=== PATIENT | female | born 1980 ===

== ENCOUNTER 2016-10-27 09:11 | Emergency (ER) | payer BC ==
[2016-10-27 10:45] VITALS: BP 153/93
--- NOTE | 2016-10-27 11:06 | UC ---
Rectal Pain HPI - HPI Summary HPI Summary: has had a hemorrhoid for 3 weeks is concerned that it is not going away - History Of Current Complaint Chief Complaint: UCGeneralIllness Stated Complaint: RECTAL PAIN Time Seen by Provider: 10/27/16 10:52 Hx Obtained From: Patient Hx Last Menstrual Period: 10/02/16 ?: No Onset/Duration: Gradual Onset, Lasting Weeks - 3, Still Present Timing: Constant Severity Initially: Moderate Severity Currently: Moderate Pain Intensity: 5 Pain Scale Used: 0-10 Numeric Location Of Pain: Anal Character: Pressure Aggravating Factor(s): Walking, Exertion, Other - bike riding Alleviating Factor(s): Nothing - has been using hemm. cream for 3 weeks tid Associated Signs And Symptoms: Positive: Negative Related History: Hemorrhoids - Allergies/Home Medications Allergies/Adverse Reactions: Allergies Allergy/AdvReac Type Severity Reaction Status Date / Time Ampicillin Allergy Unknown rash/fever Verified 02/20/16 07:05 PMH/Surg Hx/FS Hx/Imm Hx Previously Healthy: No Endocrine History Of: Denies: Diabetes, Thyroid Disease Cardiovascular History Of: Reports: Hypertension - TAKES METOPROLOL QAM Denies: Cardiac Disorders Respiratory History Of: Denies: COPD, Asthma GI/ History Of: Denies: Ulcer Neurological History Of: Reports: Migraine - 2 PER MONTH, TAKES RX PRN Psychological History Of: Reports: Anxiety - Surgical History Surgical History: Yes Surgery Procedure, Year, and Place: WISDOM TOOTH EXTRACTION- 1996- IN OFFICE. [place] Teeth Extraction- 2005- [facility]. Mole Removal-Left breast - 2009- DR [facility]. - 2013- [facility]. tubal 2016 - Family History Known Family History: Positive: Unknown Family History: no cardiovascular issues in family lineage - Social History Occupation: Employed Full-time Lives: With Family Alcohol Use: Occasionally Alcohol Amount: 2-3 BEERS WEEKEND Substance Use Type: None Smoking Status (MU): Former Smoker Type: Cigarettes Amount Used/How Often: 1/2 PPD FOR 5 YRS Length of Time of Smoking/Using Tobacco: 5 YRS Have You Smoked in the Last Year: No When Did the Patient Quit Smoking/Using Tobacco: 2004 - Immunization History Most Recent Influenza Vaccination: season Most Recent Tetanus Shot: 09/21/13 Most Recent Pneumonia Vaccination: none Review of Systems Constitutional: Negative Skin: Negative Eyes: Negative ENT: Negative Respiratory: Negative Cardiovascular: Negative Gastrointestinal: Negative Genitourinary: Negative Motor: Negative Neurovascular: Negative Musculoskeletal: Negative Neurological: Negative Psychological: Negative All Other Systems Reviewed And Are Negative: Yes - Comments Additional Review of Systems Comments: 1- 5mm diameter hemorrhoid no bleed not tense nor filled with clotted blood Physical Exam Triage Information Reviewed: Yes Appearance: Well-Appearing, No Pain Distress, Well-Nourished Vital Signs: Initial Vital Signs Temp 98.9 F 10/27/16 10:38 Pulse 73 10/27/16 10:38 Resp 20 10/27/16 10:38 BP 153/93 10/27/16 10:38 Pulse Ox 100 10/27/16 10:38 Vital Signs Reviewed: Yes Eye Exam: Normal Eyes: Positive: Conjunctiva Clear ENT Exam: Normal ENT: Positive: Normal ENT inspection, Hearing grossly normal. Negative: Nasal congestion, Nasal drainage, Trismus, Muffled/hoarse voice Neck exam: Normal Neck: Positive: Supple, Nontender Respiratory Exam: Normal Respiratory: Positive: Chest non-tender, Lungs clear, Normal breath sounds, No respiratory distress, No accessory muscle use Cardiovascular Exam: Normal Cardiovascular: Positive: RRR, No Murmur, Pulses Normal, Brisk Capillary Refill Musculoskeletal Exam: Normal Musculoskeletal: Positive: Strength Intact, ROM Intact, No Edema Neurological Exam: Normal Neurological: Positive: Alert, Muscle Tone Normal Psychological Exam: Normal Skin Exam: Normal - hemm. as described Rectal Pain Course/Dx - Course Course Of Treatment: stop riding bike until resolved, hydrocort cream/ suppository, follow with surgeon if not resolving-incease fiber in diet - Differential Dx/Diagnosis Differential Diagnosis/HQI/PQRI: Hemorrhoid(s), Prolapsed Rectum, Rectal Fissure , Rectal Polyps, STD Provider Diagnoses: Hemorroid, hypertension Discharge - Discharge Plan Condition: Stable Disposition: HOME Patient Education Materials: Laxative, Bulk-forming (By mouth), Hydrocortisone (Into the rectum), Hemorrhoids (ED) Referrals: Shadi Mishra MD [Medical Doctor] - 2 Weeks Karen Tatum MD [Primary Care Provider] -
== END 2016-10-27 11:18 | disposition home or self-care (01) ==
LOC: UCEAST 09:11
DX: K64.9 Unspecified hemorrhoids (principal); I10 Essential (primary) hypertension; Z87.891 Personal history of nicotine dependence
CPT/HCPCS: 99211; G0463

== ENCOUNTER 2017-04-27 07:06 | Emergency (ER) | payer BC ==
[2017-04-27 07:21] VITALS: BP 130/91
--- NOTE | 2017-04-27 07:37 | UC ---
Abdominal Pain Female HPI - HPI Summary HPI Summary: The patient comes in today for: 1. Abdominal pain: Onset: Yesterday Palliative/provocative: Nothing makes the pain better or worse. Quality: Crampy Region: Lower right and left abdomen Severity: 5/10 Time: Constant. Associated symptoms: Fevers: None. Vomiting/nausea: Nausea yesterday, but not today. Diarrhea: None. Others ill: NOne. Last BM: last night--normal. Previous intestinal problems: NOne. Previous treatment: Pepcid taken last night, and some ibuprofen. * - History of Current Complaint Chief Complaint: UCAbdominalPain Stated Complaint: ABD PAIN Time Seen by Provider: 04/27/17 07:29 Hx Obtained From: Patient Hx Last Menstrual Period: 04/03/17 Allergies/Adverse Reactions: Allergies Allergy/AdvReac Type Severity Reaction Status Date / Time Ampicillin Allergy Unknown rash/fever Verified 04/27/17 07:14 Home Medications: Home Medications Multiple Vitamins W/ Minerals [Multivitamin Adults] 1 tab PO DAILY 04/27/17 [ History Confirmed 04/27/17] Kohler-3 Fatty Acids [Fish Oil] 1,000 mg PO DAILY 04/27/17 [History Confirmed 01/09] PMH/Surg Hx/FS Hx/Imm Hx Previously Healthy: No - Antiphospholipid syndrome. Neurological History: Migraine - Surgical History Surgical History: Yes Surgery Procedure, Year, and Place: WISDOM TOOTH EXTRACTION- 1996- IN OFFICE. [place] Teeth Extraction- 2005- [facility]. Mole Removal-Left breast - 2009- DR [facility]. - 2013- [facility] [place]. tubal 2015 - Family History Known Family History: Positive: Hypertension Negative: Diabetes Family History: no cardiovascular issues in family lineage - Social History Occupation: Employed Full-time Alcohol Use: Occasionally Alcohol Amount: 2-3 BE[employer] WEEKEND Substance Use Type: None Smoking Status (MU): Former Smoker Type: Cigarettes Amount Used/How Often: 1/2 PPD FOR 5 YRS Length of Time of Smoking/Using Tobacco: 5 YRS Have You Smoked in the Last Year: No When Did the Patient Quit Smoking/Using Tobacco: 2003 - Immunization History Most Recent Influenza Vaccination: season Most Recent Tetanus Shot: 09/21/13 Most Recent Pneumonia Vaccination: none Review of Systems Constitutional: Negative Skin: Negative Eyes: Negative ENT: Negative Respiratory: Negative Cardiovascular: Negative Gastrointestinal: Abdominal Pain Genitourinary: Negative All Other Systems Reviewed And Are Negative: Yes Physical Exam Triage Information Reviewed: Yes Appearance: Well-Appearing, No Pain Distress, Well-Nourished Vital Signs: Initial Vital Signs Temp 98.5 F 04/27/17 07:16 Pulse 70 04/27/17 07:16 Resp 16 04/27/17 07:16 BP 130/91 04/27/17 07:16 Pulse Ox 100 04/27/17 07:16 Vital Signs Reviewed: Yes Eyes: Positive: Conjunctiva Clear. Negative: Discharge ENT: Positive: Hearing grossly normal, Other: - Ears: Right TM: cerumen impaction--but no canal erythema or edema Left TM: rao and translucent.. Negative: Pharyngeal erythema, Nasal congestion, Nasal drainage, Tonsillar swelling, Tonsillar exudate Dental: Negative: Gross Decay/Caries @, Dental Fracture @ Neck: Positive: Supple, Nontender, No Lymphadenopathy. Negative: Nuchal Rigidity Respiratory: Positive: Lungs clear, No respiratory distress, No accessory muscle use. Negative: Rhonchi, Wheezing Cardiovascular: Positive: RRR, No Murmur Abdomen Description: Positive: No Organomegaly, Soft. Negative: Nontender - She has tenderness over McBurney's point. There is percussion tenderness. There is no rebound, Distended, Guarding Musculoskeletal: Positive: Strength Intact, ROM Intact, No Edema Neurological: Positive: Alert, Muscle Tone Normal Psychological: Positive: Age Appropriate Behavior, Consolable Skin: Negative: rashes, breakdown Abd Pain Female Course/Dx - Course Course Of Treatment: Patient was told that think she should go to the ER for possible appendicitis. She agreed to go via private car. - Differential Dx/Diagnosis Provider Diagnoses: Abdominal pain (rule out appendicitis) Discharge - Discharge Plan Condition: Stable Disposition: HOME Additional Instructions: Patient is going directly to the [facility] [place] ER for abdominal pain and rule out appendicitis via private car.
== END 2017-04-27 07:46 | disposition home or self-care (01) ==
LOC: UCEAST 07:06
DX: R10.32 Left lower quadrant pain (principal); R10.31 Right lower quadrant pain; Z87.891 Personal history of nicotine dependence
CPT/HCPCS: 81003; 99212; G0463

== ENCOUNTER 2017-04-27 08:05 | Emergency (ER) | payer BC ==
[2017-04-27] MEDS: NS 0.9% 1000 ML* 2,000 ML IV ONE (08:29)
[2017-04-27 08:53] LABS: Hematocrit 39 % (35-47); Hemoglobin 13.2 g/dl (12.0-16.0); Mean Corpuscular HGB Conc 33 g/dl (31-36); Mean Corpuscular Hemoglobin 29 pg (27-31); Mean Corpuscular Volume 86 fL (80-97); Mean Platelet Volume 8 um3 (7.4-10.4); Red Blood Count 4.58 10^6/ul (4.0-5.4); Red Cell Distribution Width 13 % (10.5-15); White Blood Count 8.7 10^3/ul (3.5-10.8)
[2017-04-27 09:06] LABS: ALT 18 U/L (7-52); AST 20 U/L (13-39); Albumin 4.4 g/dL (3.2-5.2); Alkaline Phosphatase 45 U/L (34-104); Anion Gap 8 mmol/L (2-11); BUN/Creatinine Ratio 16.3 (8-20); Blood Urea Nitrogen 14 mg/dL (6-24); CO2 Carbon Dioxide 23 mmol/L (22-32); Calcium 9.4 mg/dL (8.6-10.3); Chloride 105 mmol/L (101-111); EGFR African American 95.5 (>60); EGFR Non-African American 74.2 (>60); Glucose 97 mg/dL (70-100); Lipase 16 U/L (11.0-82.0); Potassium 4.2 mmol/L (3.5-5.0); Sodium 136 mmol/L (133-145); Total Protein 7.4 g/dL (6.4-8.9)
[2017-04-27] MEDS ORDERED: Iohexol 300* (CONTRAST) 10 ML SDV IV ONE (09:20)
[2017-04-27 09:56] LABS: Urine Bilirubin Negative (Negative); Urine Glucose Negative (Negative); Urine Nitrite Negative (Negative)
--- NOTE | 2017-04-27 10:25 | RAD ---
HISTORY: Lower abdominal pain, right lower quadrant pain COMPARISONS: None relevant TECHNIQUE: Multiple transverse and longitudinal ultrasound images were obtained of the pelvis using grayscale, color Doppler, and spectral Doppler imaging using the endovaginal transducer. FINDINGS: UTERUS: The uterus measures 3.7 x 4.6 x 5.4 cm. There is a focal hypoechoic area of the uterine body measuring 0.7 x 0.5 x 0.7 cm in size within the myometrium. ENDOMETRIUM: The endometrial stripe is smooth. The endometrium measures 1.1 cm in thickness. CUL-DE-SAC: There is no free fluid within the cul-de-sac. RIGHT OVARY: The right ovary measures 2.7 x 2.1 x 2.2 cm. LEFT OVARY: The left ovary measures 4.1 x 2.7 x 3.9 cm. Normal arterial and venous waveforms are identifiable within the ovary on spectral Doppler imaging. There is a heterogeneously hypoechoic cystic lesion measuring 2.2 x 1.3 x 2. Adjacent to the left ovary, there is heterogenous hypoechoic material. There is a small amount of simple free fluid within the pelvis. BLADDER: The bladder is not well visualized. IMPRESSION: 1. COMPLICATED CYSTIC LESION OF THE LEFT OVARY MEASURING 2.2 CM IN SIZE. ADDITIONALLY, THERE IS COMPLEX AND SIMPLE FLUID ADJACENT TO THE LEFT ADNEXA WHICH MAY REFLECT SOME DEGREE OF HEMORRHAGIC FLUID, POSSIBLY FROM A RUPTURED HEMORRHAGIC OVARIAN CYST, THOUGH THE IMAGING APPEARANCE IS INDETERMINATE. 2. RECOMMEND CONTINUED SHORT-TERM INTERVAL FOLLOW-UP WITH FOLLOW-UP ULTRASONOGRAPHY IN 6 WEEKS-12 WEEKS. 3. INCIDENTAL NOTED IS A 0.7 CM HYPOECHOIC AREA OF THE UTERUS, LIKELY A SMALL FIBROID..
--- NOTE | 2017-04-27 12:02 | RAD ---
INDICATION: Left lower quadrant pain. Complex left adnexal cyst on concurrent ultrasound. COMPARISON: Transvaginal sonogram April 27, 2017 TECHNIQUE: Axial source images were obtained from the hemidiaphragms to the symphysis pubis following administration of oral and intravenous contrast. 103 mL Omnipaque 300 was utilized. Coronal and sagittal reconstructed images were acquired. Lung bases: The lung bases are clear. Liver: The liver is normal in size. There are no masses. There is no ductal dilatation. Gallbladder: There are no calcified gallstones. There is no evidence of wall thickening or pericholecystic fluid. Spleen: The spleen is normal in size. There are no masses. Pancreas: There is no focal pancreatic mass or ductal dilatation. Adrenal glands: There is no evidence of adrenal mass. Kidneys: The kidneys are normal in size and position. There are prompt nephrograms and there is prompt excretion bilaterally. There are no renal parenchymal masses. There is no evidence of nephrolithiasis. Adenopathy: There is no evidence of adenopathy by size criteria. Fluid collections: There is moderate free fluid in both paracolic gutters right groin left. The free fluid appears complex. Vessels:There are no significant atherosclerotic changes involving the aorta. There is no focal aneurysm. The iliac vessels are normal in caliber. The IVC appears normal. GI tract: There are no acute CT bowel findings. There is no obstruction. The stomach and small bowel appear normal. The lower GI tract is normal. The cecum, ileocecal valve, and terminal ileum appear normal. There is limited evaluation of the appendix which is opacified and appears normal in caliber. There is fluid adjacent to the appendix likely related to the left adnexal process. Pelvic organs: There is a complex cystic mass in the left adnexa as described on the ultrasound. This is likely a involuting and/or hemorrhagic cyst. Measurements of 3.6 x 3.1 approximately 4.5 cm are obtained. Bladder: There are no bladder masses. Abdominal and pelvic soft tissues: The extraperitoneal abdominal and pelvic soft tissues appear normal.. Osseous structures: There are no acute osseous findings. Other: None IMPRESSION: COMPLEX AND PRESUMED HEMORRHAGIC LEFT OVARIAN CYST WITH MILDLY COMPLEX FREE FLUID, LIKELY HEMORRHAGIC FLUID.. THE AMOUNT OF FLUID IS MORE THAN IS TYPICAL. SUGGEST SURGICAL AND/OR GYNECOLOGIC REFERRAL INDICATED. FROM AN IMAGING STANDPOINT SUGGEST SHORT-TERM FOLLOW-UP ULTRASONOGRAPHY.
[2017-04-27 14:45] LABS: Hematocrit 36 % (35-47); Hemoglobin 12.1 g/dl (12.0-16.0); Mean Corpuscular HGB Conc 34 g/dl (31-36); Mean Corpuscular Hemoglobin 29 pg (27-31); Mean Corpuscular Volume 87 fL (80-97); Mean Platelet Volume 8 um3 (7.4-10.4); Red Cell Distribution Width 13 % (10.5-15); White Blood Count 8.5 10^3/ul (3.5-10.8)
--- NOTE | 2017-04-27 15:23 | ED ---
Arthur Green Thomas, scribed for Terrance Rooney MD on 04/27/17 at 0814 . Abdominal Pain/Female - HPI Summary HPI Summary: The pt is a 37 y/o F referred to the ED form [facility] c/o sudden onset lower abd pain that began last night at 18:00. She rates the pain 5/10, and the pain has a cramping quality. The pain is worsened with palpation and is mildly worsened with walking. The pain is not worsened with taking a BM or taking food. She additionally c/o nausea (yesterday but none in the ED), lower back pain (when she woke up) and dysuria (mild). She denies diarrhea, bloody stool, vaginal discharge, hard or loose stools, fevers, and chills. Her urine was negative for UTI at [facility]. Her last BM was 20:00 yesterday, and this did not worsen her pain. She denies that this pain is similar to her previous episodes of menstrual cramping. She first presented to [facility] when she woke up at 4 AM with concerning abd pain. PMHx: HTN. PSHx: , tubal ligation. LNMP April 01. - History of Current Complaint Chief Complaint: EDAbdPain Stated Complaint: ABD PAIN Hx Obtained From: Patient Hx Last Menstrual Period: 04/03/17 Onset/Duration: Sudden Onset, Still Present, Worse Since - this AM Timing: Constant Severity Currently: Moderate Pain Intensity: 5 Pain Scale Used: 0-10 Numeric Location: Other - lower abd Radiates: Yes Radiates to: Back - lower Character: Cramping Aggravating Factor(s): Movement - midly, Other: - NEG: taking a BM, palpation, food Alleviating Factor(s): Nothing Associated Signs and Symptoms: Positive: Back Pain, Nausea - yesterday but not in the ED, Other: - POS: dysuria; NEG: bloody stool, hard or loose stools, chills. Negative: Fever, Vaginal Discharge, Diarrhea Allergies/Adverse Reactions: Allergies Allergy/AdvReac Type Severity Reaction Status Date / Time Ampicillin Allergy Unknown rash/fever Verified 04/27/17 08:20 PMH/Surg Hx/FS Hx/Imm Hx Previously Healthy: No Endocrine/Hematology History: Reports: Hx Anemia - HX OF A TEENAGER Denies: Hx Diabetes, Hx Thyroid Disease Cardiovascular History: Reports: Hx Hypertension Respiratory History: Denies: Hx Asthma, Hx Chronic Obstructive Pulmonary Disease (COPD) GI History: Reports: Hx Gastroesophageal Reflux Disease - DX WITH SILENT REFLUX 1 YR AGO, SEEMS OK NOW Denies: Hx Ulcer Musculoskeletal History: Reports: Hx Arthritis - DX WITH RA 8 YRS AGO, ?? PT DOESN'T THINK SHE HAS IT Sensory History: Reports: Hx Contacts or Glasses - BOTH, WILL WEAR GLASSES DOS Denies: Hx Hearing Aid Opthamlomology History: Reports: Hx Contacts or Glasses - BOTH, WILL WEAR GLASSES DOS Neurological History: Reports: Hx Migraine - 2 PER MONTH, TAKES RX PRN Psychiatric History: Reports: Hx Anxiety - Surgical History Surgery Procedure, Year, and Place: WISDOM TOOTH EXTRACTION- 1996- [facility] DR. [facility]ICE. [place] Teeth Extraction- 2005- [facility]. Mole Removal-Left breast - 2009- DR [facility]. - [place]- [facility] [place] [facility] [place] Hx Anesthesia Reactions: No Infectious Disease History: Denies: Hx Clostridium Difficile, Hx Hepatitis, Hx Human Immunodeficiency Virus (HIV), Hx of Known/Suspected MRSA, Hx Shingles, Hx Tuberculosis, Hx Known/ Suspected VRE, Hx Known/Suspected VRSA, History Other Infectious Disease, Traveled Outside the [place] in Last 30 Days - Family History Known Family History: Positive: Hypertension Negative: Diabetes Family History: no cardiovascular issues in family lineage - Social History Alcohol Use: Occasionally Alcohol Amount: 2-3 BEERS WEEKEND Substance Use Type: Reports: None Smoking Status (MU): Former Smoker Type: Cigarettes Amount Used/How Often: 1/2 PPD FOR 5 YRS Length of Time of Smoking/Using Tobacco: 5 YRS Have You Smoked in the Last Year: No Review of Systems Constitutional: Negative Negative: Fever, Chills Eyes: Negative ENT: Negative Cardiovascular: Negative Respiratory: Negative Positive: Abdominal Pain - lower, cramping quality, Nausea - yesterday, not in ED, Other - NEG: bloody, hard, or loose stools. Negative: Diarrhea Positive: dysuria - mild. Negative: discharge Positive: Other - POS: lower back pain, mild Skin: Negative Neurological: Negative Psychological: Normal All Other Systems Reviewed And Are Negative: Yes Physical Exam - Summary Physical Exam Summary: Gen: well-appearing, no acute distress Skin: warm, color, dry Head: normal Eyes: EOMI, JENS ENT: normal Neck: supple, nontender Resp: CTA, breath sounds present Cardio: RRR Abd: soft, mild TTP LLQ and RLQ (more severe RLQ). Positive heel strike. Negative Obturator sign Bowel: positive bowel sounds Musc: normal, strength/ROM intact Neuro: normal, sensory/motor intact, A&O x3 Psych: affect/mood appropriate Triage Information Reviewed: Yes Vital Signs On Initial Exam: Initial Vitals Temp Pulse Resp BP Pulse Ox 98.1 F 80 18 138/96 100 04/27/17 08:06 04/27/17 08:06 04/27/17 08:06 04/27/17 08:06 04/27/17 08:06 Vital Signs Reviewed: Yes Diagnostics - Vital Signs Vital Signs Temp Pulse Resp BP Pulse Ox 04/27/17 08:06 98.1 F 80 18 138/96 100 - Laboratory Lab Results: Lab Results 04/27/17 04/27/17 04/27/17 Range/Units 08:30 08:30 08:30 WBC 8.7 (3.5-10.8) 10^3/ul RBC 4.58 (4.0-5.4) 10^6/ul Hgb 13.2 (12.0-16.0) g/dl Hct 39 (35-47) % MCV 86 (80-97) fL MCH 29 (27-31) pg MCHC 33 (31-36) g/dl RDW 13 (10.5-15) % Plt Count 227 (150-450) 10^3/ul MPV 8 (7.4-10.4) um3 Neut % (Auto) 73.1 (38-83) % Lymph % (Auto) 19.8 L (25-47) % [place] % (Auto) 6.2 (1-9) % Eos % (Auto) 0.6 (0-6) % Baso % (Auto) 0.3 (0-2) % Absolute Neuts (auto) 6.4 (1.5-7.7) 10^3/ul Absolute Lymphs (auto) 1.7 (1.0-4.8) 10^3/ul Absolute Monos (auto) 0.5 (0-0.8) 10^3/ul Absolute Eos (auto) 0.1 (0-0.6) 10^3/ul Absolute Basos (auto) 0 (0-0.2) 10^3/ul Absolute Nucleated RBC 0 10^3/ul Nucleated RBC % 0 Sodium 136 (133-145) mmol/L Potassium 4.2 (3.5-5.0) mmol/L Chloride 105 (101-111) mmol/L Carbon Dioxide 23 (22-32) mmol/L Anion Gap 8 (2-11) mmol/L BUN 14 (6-24) mg/dL Creatinine 0.86 (0.51-0.95) mg/dL Est GFR ( Amer) 95.5 (>60) Est GFR (Non-Af Amer) 74.2 (>60) BUN/Creatinine Ratio 16.3 (8-20) Glucose 97 (70-100) mg/dL Lactic Acid 0.8 (0.5-2.0) mmol/L Calcium 9.4 (8.6-10.3) mg/dL Total Bilirubin 0.90 (0.2-1.0) mg/dL AST 20 (13-39) U/L ALT 18 (7-52) U/L Alkaline Phosphatase 45 (34-104) U/L C-Reactive Protein 10.40 H (< 5.00) mg/L Total Protein 7.4 (6.4-8.9) g/dL Albumin 4.4 (3.2-5.2) g/dL Globulin 3.0 (2-4) g/dL Albumin/Globulin Ratio 1.5 (1-3) Lipase 16 (11.0-82.0) U/L Beta HCG, Quant < 0.60 mIU/mL Urine Color Urine Appearance Urine pH (5-9) Ur Specific [place] (1.010-1.030) Urine Protein (Negative) Urine Ketones (Negative) Urine Blood (Negative) Urine Nitrate (Negative) Urine Bilirubin (Negative) Urine Urobilinogen (Negative) Ur Leukocyte Esterase (Negative) Urine Glucose (Negative) 04/27/17 04/27/17 Range/Units 09:45 14:32 WBC 8.5 (3.5-10.8) 10^3/ul RBC 4.10 (4.0-5.4) 10^6/ul Hgb 12.1 (12.0-16.0) g/dl Hct 36 (35-47) % MCV 87 (80-97) fL MCH 29 (27-31) pg MCHC 34 (31-36) g/dl RDW 13 (10.5-15) % Plt Count 221 (150-450) 10^3/ul MPV 8 (7.4-10.4) um3 Neut % (Auto) 72.9 (38-83) % Lymph % (Auto) 21.4 L (25-47) % [place] % (Auto) 4.8 (1-9) % Eos % (Auto) 0.3 (0-6) % Baso % (Auto) 0.6 (0-2) % Absolute Neuts (auto) 6.2 (1.5-7.7) 10^3/ul Absolute Lymphs (auto) 1.8 (1.0-4.8) 10^3/ul Absolute Monos (auto) 0.4 (0-0.8) 10^3/ul Absolute Eos (auto) 0 (0-0.6) 10^3/ul Absolute Basos (auto) 0.1 (0-0.2) 10^3/ul Absolute Nucleated RBC 0.01 10^3/ul Nucleated RBC % 0.1 Sodium (133-145) mmol/L Potassium (3.5-5.0) mmol/L Chloride (101-111) mmol/L Carbon Dioxide (22-32) mmol/L Anion Gap (2-11) mmol/L BUN (6-24) mg/dL Creatinine (0.51-0.95) mg/dL Est GFR ( Amer) (>60) Est GFR (Non-Af Amer) (>60) BUN/Creatinine Ratio (8-20) Glucose (70-100) mg/dL Lactic Acid (0.5-2.0) mmol/L Calcium (8.6-10.3) mg/dL Total Bilirubin (0.2-1.0) mg/dL AST (13-39) U/L ALT (7-52) U/L Alkaline Phosphatase (34-104) U/L C-Reactive Protein (< 5.00) mg/L Total Protein (6.4-8.9) g/dL Albumin (3.2-5.2) g/dL Globulin (2-4) g/dL Albumin/Globulin Ratio (1-3) Lipase (11.0-82.0) U/L Beta HCG, Quant mIU/mL Urine Color Colorless Urine Appearance Clear Urine pH 6.0 (5-9) Ur Specific [place] 1.002 L (1.010-1.030) Urine Protein Negative (Negative) Urine Ketones Negative (Negative) Urine Blood Negative (Negative) Urine Nitrate Negative (Negative) Urine Bilirubin Negative (Negative) Urine Urobilinogen Negative (Negative) Ur Leukocyte Esterase Negative (Negative) Urine Glucose Negative (Negative) Result Diagrams: 04/27/17 14:32 04/27/17 08:30 Lab Statement: Any lab studies that have been ordered have been reviewed, and results considered in the medical decision making process. - CT CT Abd/Pel CT Interpretation: Positive (See Comments) - COMPLEX AND PRESUMED HEMORRHAGIC LEFT OVARIAN CYST WITH MILDLY COMPLEX FREE FLUID, LIKELY HEMORRHAGIC FLUID.. THE AMOUNT OF FLUID IS MORE THAN IS TYPICAL. SUGGEST SURGICAL AND/OR GYNECOLOGIC REFERRAL INDICATED. FROM AN IMAGING STANDPOINT SUGGEST SHORT- TERM FOLLOW-UP ULTRASONOGRAPHY. CT Interpretation Completed By: Radiologist - Additional Comments Diagnostic Additional Comments: Transvaginal US. Interpreted by Radiologist. Impression: 1. COMPLICATED CYSTIC LESION OF THE LEFT OVARY MEASURING 2.2 CM IN SIZE. ADDITIONALLY, THERE IS COMPLEX AND SIMPLE FLUID ADJACENT TO THE LEFT ADNEXA WHICH MAY REFLECT SOME DEGREE OF HEMORRHAGIC FLUID, POSSIBLY FROM A RUPTURED HEMORRHAGIC OVARIAN CYST, THOUGH THE IMAGING APPEARANCE IS INDETERMINATE. 2. RECOMMEND CONTINUED SHORT-TERM INTERVAL FOLLOW-UP WITH FOLLOW-UP ULTRASONOGRAPHY IN 6 WEEKS-12 WEEKS. 3. INCIDENTAL NOTED IS A 0.7 CM HYPOECHOIC AREA OF THE UTERUS, LIKELY A SMALL FIBROID.. Re-Evaluation - Re-Evaluation First Eval Re-Evaluation Time: 13:58 Change: Unchanged Abdominal Pain Fem Course/Dx - Course Course Of Treatment: NO CRITICAL CARE TIME. DISCUSSED WITH OBGYN, DR ANN. H/H RECHECKED. IT HAS GONE DOWN AFTER IVF BUT, IT IS STILL WNL. ORTHOSTATICS LAYING TO STANDING ARE NORMAL. DISCUSSED RESULTS WITH PATIENT. SHE KNOWS TO RETURN WITH ANY WORSENING OF HER CONDITION OR QUESTIONS OR CONCERNS. DISCHARGE HOME STABLE. - Diagnoses Provider Diagnoses: Hemorrhagic ovarian cyst - Provider Notifications Discussed Care Of Patient With: Kayleen Ann Time Discussed With Above Provider: 14:22 Instructed by Provider To: Other - Discussed patient Discharge - Discharge Plan Condition: Stable Disposition: HOME Patient Education Materials: Ruptured Ovarian Cyst (ED) Referrals: Karen Tatum MD [Primary Care Provider] - Kayleen Ann MD [Medical Doctor] - Additional Instructions: [facility]. BECAUSE YOUR OVARIAN CYST IS A HEMORRHAGIC, THERE IS A CHANCE IT CAN CONTINUE TO BLEED. RETURN TO THE EMERGENCY DEPARTMENT FOR ANY WORSENING OF YOUR CONDITION; PAIN, FEVER, YOU FEEL ILL, YOU FEEL LIKE YOU ARE GOING TO PASS OUT OR QUESTIONS OR CONCERNS. The documentation as recorded by the Arthur navarro Thomas accurately reflects the service I personally performed and the decisions made by me, Terrance Rooney MD.
[2017-04-27 15:29] VITALS: BP 131/103
== END 2017-04-27 15:29 | disposition home or self-care (01) ==
LOC: ED 08:05
DX: N83.202 Unspecified ovarian cyst, left side (principal); I10 Essential (primary) hypertension; F41.9 Anxiety disorder, unspecified; Z87.891 Personal history of nicotine dependence; Z88.0 Allergy status to penicillin; K21.9 Gastro-esophageal reflux disease without esophagitis
CPT/HCPCS: 36415; 74177; 76830; 80053; 81003; 83605; 83690; 84702; 85025; 86140; 96360; 99282; Q9967

== ENCOUNTER 2018-02-08 12:43 | Emergency (ER) | payer SELFPAY ==
[2018-02-08 13:28] VITALS: BP 127/95
[2018-02-08] MEDS ORDERED: Ibuprofen TAB* 800 MG PO ONE (13:43)
--- NOTE | 2018-02-08 13:46 | UC ---
Hand/Wrist HPI - HPI Summary HPI Summary: Pt states while at work, a child threw a large toy truck and struck her in the R hand(points to thenar eminence). States area is sore and sometimes she feels it into her wrist. Denies bony tenderness and loss of function. - History Of Current Complaint Chief Complaint: UCUpperExtremity Stated Complaint: WC - RIGHT WRIST INJ Time Seen by Provider: 02/08/18 13:35 Hx Obtained From: Patient Hx Last Menstrual Period: 01/25/18 Onset/Duration: Sudden Onset Pain Intensity: 4 Character Of Pain: Sharp Aggravating Factor(s): Movement Alleviating Factor(s): Nothing Associated Signs And Symptoms: Negative: Swelling, Redness, Bruising, Weakness, Numbness/Tingling - Allergies/Home Medications Allergies/Adverse Reactions: Allergies Allergy/AdvReac Type Severity Reaction Status Date / Time ampicillin Allergy Rash And Verified 02/08/18 13:29 fever Home Medications: Home Medications Metoprolol Tartrate TAB* [Lopressor TAB*] 25 mg PO DAILY 02/08/18 [History Confirmed 02/08/18] Multivitamins/Minerals TAB* [Theragran/minerals TAB*] 1 tab PO DAILY 02/08/18 [ History Confirmed 02/08/18] PMH/Surg Hx/FS Hx/Imm Hx Neurological History: Migraine - Surgical History Surgical History: Yes Surgery Procedure, Year, and Place: WISDOM TOOTH EXTRACTION- 1996- IN OFFICE. [place] Teeth Extraction- 2005- [facility]. Mole Removal-Left breast - 2009- DR [facility]. - 2013- [facility]. tubal 2016 - Family History Known Family History: Positive: Hypertension Negative: Diabetes Family History: no cardiovascular issues in family lineage - Social History Occupation: Employed Full-time Alcohol Use: Occasionally Alcohol Amount: 2-3 [employer]EEK[employer] Substance Use Type: None Smoking Status (MU): Former Smoker Type: Cigarettes Amount Used/How Often: 1/2 PPD FOR 5 YRS Length of Time of Smoking/Using Tobacco: 5 YRS Have You Smoked in the Last Year: No When Did the Patient Quit Smoking/Using Tobacco: 2003 - Immunization History Most Recent Influenza Vaccination: season Most Recent Tetanus Shot: 09/21/13 Most Recent Pneumonia Vaccination: none Vaccination Up to Date: Yes Review of Systems Constitutional: Negative Skin: Negative Eyes: Negative ENT: Negative Respiratory: Negative Cardiovascular: Negative Gastrointestinal: Negative Genitourinary: Negative Motor: Negative Neurovascular: Negative Musculoskeletal: Other: - pain R palm sometimes into wrist Neurological: Negative Psychological: Negative Is Patient Immunocompromised?: No All Other Systems Reviewed And Are Negative: Yes Physical Exam Triage Information Reviewed: Yes Appearance: Well-Appearing Vital Signs: Initial Vital Signs Temp 98.7 F 02/08/18 13:21 Pulse 78 02/08/18 13:21 Resp 18 02/08/18 13:21 BP 127/95 02/08/18 13:21 Pulse Ox 100 02/08/18 13:21 Vital Signs Reviewed: Yes Eyes: Positive: Conjunctiva Clear ENT: Positive: Normal ENT inspection Neck: Positive: Supple Respiratory: Positive: Lungs clear, Normal breath sounds Cardiovascular: Positive: RRR, No Murmur Abdomen Description: Positive: Nontender, No Organomegaly, Soft Bowel Sounds: Positive: Present Musculoskeletal: Positive: Other: - RUE: no gross deformity, swelling or discoloration. No bony wrist or bony hand tenderness. There is tenderness to soft tissue involving the thenar eminence. The hand has full s/v/m function and wrist has full rom. rest of RUE is unremarkable. Neurological: Positive: Alert Psychological: Positive: Age Appropriate Behavior Skin Exam: Normal Hand/Wrist Course/Dx - Course Course Of Treatment: no concern for fx or infection. bettina applied for comfort. as needed f/u given. - Differential Dx/Diagnosis Provider Diagnoses: Contusion R palm Discharge - Sign-Out/Discharge Documenting (check all that apply): Discharge - Discharge Plan Condition: Stable Disposition: HOME Patient Education Materials: Contusion in Adults (ED) Referrals: Karen Diaz MD [Primary Care Provider] - If Needed Additional Instructions: FOLLOW UP WITH DR DIAZ IN 5 DAYS NEEDED FOR ONGOING DISCOMFORT OR DR FONG [facility] IF DR DIAZ DOES NOT TAKE WORKERS COMPENSATION. BETTINA WRAP FOR COMFORT. TAKE OVER THE COUNTER MOTRIN NEEDED - Billing Disposition and Condition Condition: STABLE Disposition: HOME
[2018-02-08] MEDS ORDERED: Ibuprofen TAB* 400 MG PO ONE (13:47)
== END 2018-02-08 13:52 | disposition home or self-care (01) ==
LOC: UCCORT 12:43
DX: S60.221A Contusion of right hand, initial encounter (principal); W20.8XXA Other cause of strike by thrown, projected or falling object, initial encounter; Y92.9 Unspecified place or not applicable; Z88.3 Allergy status to other anti-infective agents; Z87.891 Personal history of nicotine dependence
CPT/HCPCS: 99212; A9270-GY; G0463